=== PATIENT | female | born 1935 | race Caucasian/White ===

== ENCOUNTER 2016-12-24 20:02 | Emergency (ER) | payer MEDICARE, OTHER ==
[2016-12-24] MEDS ORDERED: cefTRIAXone 250 MG Vial IM ONE (20:41)
--- NOTE | 2016-12-24 20:46 | EDM.PDOC ---
ED HPI GENERAL MEDICAL PROBLEM - General Chief Complaint: ENT Problem Stated Complaint: PAIN/SWOLLEN LT CHEEK Time Seen by Provider: 12/24/16 20:30 Source of Information: Reports: Patient History Limitations: Reports: No Limitations - History of Present Illness INITIAL COMMENTS - FREE TEXT/NARRATIVE: HISTORY AND PHYSICAL: History of present illness: [Pt comes to the ER complaining of L cheek swelling and tenderness. Onset was this afternoon. She looked at a lemon and found herself salivating, and noticed that she had pain to her L cheek in doing so. Throughout the afternoon and evening, her left cheek became more swollen and painful. She reports a history of a L salivary stone about one year ago. She has been following with Dr. Clemente on and off for the past several months regarding this. Has not taken any OTC medications for her symptoms. Denies fever and chills, sore throat and difficulty swallowing. No chest pain, SOA or difficulty breathing. No abd pain, nausea or vomiting. Has no other complaints or concerns at this time. ] Review of systems: As per history of present illness and below otherwise all systems reviewed and negative. Past medical history: As per history of present illness and as reviewed below otherwise noncontributory. Surgical history: As per history of present illness and as reviewed below otherwise noncontributory. Social history: No reported history of drug or alcohol abuse. Family history: As per history of present illness and as reviewed below otherwise noncontributory. Physical exam: HEENT: Swelling noted to L cheek, anterior to the maxillary joint/over the parotid area. Is exquisitely tender to palpation. No erythema, or warmth to touch. Head is otherwise Atraumatic, normocephalic. Oral mucous membranes moist and pink. No swelling or abnormalities to oral cavity. No cervical lymphadenopathy. Lungs: Clear to auscultation, breath sounds equal bilaterally. Heart: S1S2, regular rate and rhythm. Abdomen: Soft, nondistended, nontender. Genitourinary: Deferred. Rectal: Deferred. Extremities: Atraumatic, ambulates without device or assistance. Neuro: Awake, alert, oriented. Motor and sensory unremarkable throughout. Exam nonfocal. Therapeutics: [Rocephin 1 gram IM] Impression: [L siloadenitis] Plan: [Cephalexin 500mg (#40) si po BID 0 RF's. Tylenol/ibuprofen prn. Follow up with Dr. Clemente tomorrow. Her demographic sheet and PN is forwarded to Dr. Clemente for her office to call and schedule appt. Strict return precautions discussed.] Definitive disposition and diagnosis as appropriate pending reevaluation and review of above. Left Oral/Mouth Pain Score (Numeric/FACES): 5 - Related Data Allergies Allergy/AdvReac Type Severity Reaction Status Date / Time amoxicillin [Amoxicillin] Allergy Rash Verified 12/24/16 20:09 Home Meds: Home Meds Metoprolol Succinate [Toprol XL] 25 mg PO BID 03/27/16 [History] Past Medical History - Past Health History Medical/Surgical History: Denies Medical/Surgical History HEENT History: Reports: Cataract, Impaired Vision Cardiovascular History: Reports: None, Arrhythmia, Other (See Below) Other Cardiovascular History: "leaky valve" Respiratory History: Reports: None Gastrointestinal History: Reports: None Genitourinary History: Reports: None ICER MACHINE History: Reports: Musculoskeletal History: Reports: Fracture Neurological History: Reports: None Psychiatric History: Reports: None Endocrine/Metabolic History: Reports: None Hematologic History: Reports: None Immunologic History: Reports: None Oncologic (Cancer) History: Reports: None Dermatologic History: Reports: None - Infectious Disease History Infectious Disease History: Reports: Chicken Pox, Shingles - Past Surgical History Head Surgeries/Procedures: Reports: None HEENT Surgical History: Reports: Cataract Surgery, Tonsillectomy, Other (See Below) Other HEENT Surgeries/Procedures: infected saliva gland GI Surgical History: Reports: Appendectomy Social & Family History - Family History Family Medical History: Noncontributory - Tobacco Use Smoking Status *Q: Never Smoker Second Hand Smoke Exposure: No - Caffeine Use Caffeine Use: Reports: Coffee - Alcohol Use Days Per Week of Alcohol Use: 0 - Recreational Drug Use Recreational Drug Use: No ED ROS ENT - Review of Systems Review Of Systems: ROS reveals no pertinent complaints other than HPI. ED EXAM, ENT - Physical Exam Exam: See Below Course - Vital Signs Last Recorded V/S: Last Vital Signs Temp 97.8 F 12/24/16 20:09 Pulse 59 L 12/24/16 20:09 Resp 18 12/24/16 20:09 BP 173/74 H 12/24/16 20:09 Pulse Ox 99 12/24/16 20:09 - Orders/Labs/Meds Meds: Medications Discontinued Medications Generic Name Dose Route Start Last Admin Trade Name Walter PRN Reason Stop Dose Admin Ceftriaxone Sodium 1,000 mg 12/24/16 20:41 Rocephin IM 12/24/16 20:42 ONETIME ONE Ceftriaxone Sodium 1,000 mg/ 4 mls @ 4 mls/sec 12/24/16 20:51 Lidocaine HCl IM 12/24/16 20:52 ONETIME ONE Departure - Departure Time of Disposition: 20:50 Disposition: Home, Self-Care 01 Condition: good Clinical Impression: Sialoadenitis, unspecified - Discharge Information Instructions: Salivary Stone Referrals: Amrit Carpio MD [Primary Care Provider] - Forms: ED Department Discharge Additional Instructions: The following information is given to patients seen in the emergency department who are being discharged to home. This information is to outline your options for follow-up care. We provide all patients seen in our emergency department with a follow-up referral. The need for follow-up, as well as the timing and circumstances, are variable depending upon the specifics of your emergency department visit. If you don't have a primary care physician on staff, we will provide you with a referral. We always advise you to contact your personal physician following an emergency department visit to inform them of the circumstance of the visit and for follow-up with them and/or the need for any referrals to a consulting specialist. The emergency department will also refer you to a specialist when appropriate. This referral assures that you have the opportunity for follow-up care with a specialist. All of these measure are taken in an effort to provide you with optimal care, which includes your follow-up. Under all circumstances we always encourage you to contact your private physician who remains a resource for coordinating your care. When calling for follow-up care, please make the office aware that this follow-up is from your recent emergency room visit. If for any reason you are refused follow-up, please contact the [facility] emergency department at and asked to speak to the emergency department charge nurse. [facility] Specialty care- ENT [address] [place] [id number] Clemente tomorrow or as a executive receptionist schedules you. Tylenol or ibuprofen as needed for discomfort. Apply warm wet washcloth to the affected area. Take antibiotics as prescribed. Return to ER as needed discussed.
[2016-12-24] MEDS ORDERED: cefTRIAXone 1,000 MG in Lidocaine 1% 4 ML IM ONE (20:51)
[2016-12-24 21:21] VITALS: BP 174/72
== END 2016-12-24 21:15 | disposition home or self-care (01) ==
LOC: MW.ED 20:02
DX: K11.20 Sialoadenitis, unspecified (principal); Z98.49 Cataract extraction status, unspecified eye; Z98.890 Other specified postprocedural states; Z90.49 Acquired absence of other specified parts of digestive tract; Z88.1 Allergy status to other antibiotic agents
CPT/HCPCS: 96372; 99283; J0696

== ENCOUNTER 2018-10-02 06:14 | Emergency (ER) | payer MEDICARE, OTHER ==
[2018-10-02] MEDS ORDERED: Albuterol/Ipratropium 3.0-0.5 MG/3 ML Neb Soln ONE (06:17)
--- NOTE | 2018-10-02 06:48 | EDM.PDOC ---
<Eduardo Puentes J - Last Filed: 10/02/18 06:46> ED HPI GENERAL MEDICAL PROBLEM - General Chief Complaint: General Stated Complaint: HIGH BLOOD PRESSURE AND PAIN IN RIGHT ARM Time Seen by Provider: 10/02/18 06:42 - History of Present Illness INITIAL COMMENTS - FREE TEXT/NARRATIVE: HISTORY AND PHYSICAL: History of present illness: Patient is an 82-year-old white female was a prior history of right shoulder/ arm injury she had physical therapy for this and does have chronic intermittent pain she states has never been at rest and she presents today with a concern of right shoulder and arm pain that awoke her from sleep. She denies chest pain denies shortness of breath denies palpitations or any other associated symptom was no diaphoresis nausea or vomiting Review of systems: As per history of present illness and below otherwise all systems reviewed and negative. Past medical history: As per history of present illness and as reviewed below otherwise noncontributory. Surgical history: As per history of present illness and as reviewed below otherwise noncontributory. Social history: No reported history of drug or alcohol abuse. Family history: As per history of present illness and as reviewed below otherwise noncontributory. Physical exam: HEENT: Atraumatic, normocephalic, pupils reactive, negative for conjunctival pallor or scleral icterus, mucous membranes moist, throat clear, neck supple, nontender, trachea midline. Lungs: Clear to auscultation, breath sounds equal bilaterally, chest nontender. Heart: S1S2, regular, negative for clicks, rubs, or JVD. Abdomen: Soft, nondistended, nontender. Negative for masses or hepatosplenomegaly. Negative for costovertebral tenderness. Pelvis: Stable nontender. Genitourinary: Deferred. Rectal: Deferred. Extremities: Right shoulder has no point tenderness no gross deformity she has limited range of motion and very to her prior injury. Neuro: Awake, alert, oriented. Cranial nerves II through XII unremarkable. Cerebellum unremarkable. Motor and sensory unremarkable throughout. Exam nonfocal. 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 right arm Pain Score (Numeric/FACES): 4 - Related Data Allergies Allergy/AdvReac Type Severity Reaction Status Date / Time amoxicillin [Amoxicillin] Allergy Rash Verified 10/02/18 06:20 Home Meds: Home Meds Metoprolol Succinate [Toprol XL] 12.5 mg PO BID 03/27/16 [History] Furosemide [Lasix] 1 tab PO DAILY 10/02/18 [History] Past Medical History - Past Health History Medical/Surgical History: Denies Medical/Surgical History HEENT History: Reports: Cataract, Impaired Vision Cardiovascular History: Reports: None, Arrhythmia, Other (See Below) Other Cardiovascular History: "leaky valve" Respiratory History: Reports: None Gastrointestinal History: Reports: None Genitourinary History: Reports: None 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: Musculoskeletal History: Reports: Fracture Neurological History: Reports: None Psychiatric History: Reports: None Endocrine/Metabolic History: Reports: None Hematologic History: Reports: None Immunologic History: Reports: None Oncologic (Cancer) History: Reports: None Dermatologic History: Reports: None - Infectious Disease History Infectious Disease History: Reports: Chicken Pox, Shingles - Past Surgical History Head Surgeries/Procedures: Reports: None HEENT Surgical History: Reports: Cataract Surgery, Tonsillectomy, Other (See Below) Other HEENT Surgeries/Procedures: infected saliva gland GI Surgical History: Reports: Appendectomy Social & Family History - Family History Family Medical History: Noncontributory - Caffeine Use Caffeine Use: Reports: Coffee ED ROS GENERAL - Review of Systems Review Of Systems: ROS reveals no pertinent complaints other than HPI. ED EXAM, GENERAL - Physical Exam Exam: See Below (See dictation) Course - Vital Signs Last Recorded V/S: Last Vital Signs Temp 97.5 F 10/02/18 06:14 Pulse 67 10/02/18 06:14 Resp 18 10/02/18 06:14 BP 131/73 10/02/18 07:34 Pulse Ox 98 10/02/18 06:14 - Orders/Labs/Meds Orders: Active Orders 24 hr Category Date Time Status Cardiac Monitoring [RC] . DIRECTED Care 10/02/18 06:33 Active EKG Documentation Completion [RC] STAT Care 10/02/18 06:33 Active Nitroglycerin [Nitrostat] Med 10/02/18 07:18 Active 0.4 mg SL Q5M PRN Sodium Chloride 0.9% [Normal Saline] 1,000 ml Med 10/02/18 07:30 Active IV STAT Medication Orders Sodium Chloride (Normal Saline) 1,000 mls @ 125 mls/hr IV STAT RODGER Last Admin: 10/02/18 07:26 Dose: 125 mls/hr Nitroglycerin (Nitrostat) 0.4 mg SL Q5M PRN PRN Reason: Chest Pain Last Admin: 10/02/18 07:28 Dose: 0.4 mg Labs: Laboratory Tests 10/02/18 10/02/18 10/02/18 Range/Units 06:25 06:25 06:25 WBC 6.32 (4.0-11.0) K/uL RBC 4.20 L (4.30-5.90) M/uL Hgb 11.9 L (12.0-16.0) g/dL Hct 37.0 (36.0-46.0) % MCV 88.1 (80.0-98.0) fL MCH 28.3 (27.0-32.0) pg MCHC 32.2 (31.0-37.0) g/dL RDW Std Deviation 44.6 (28.0-62.0) fl RDW Coeff of Andre 14 (11.0-15.0) % Plt Count 258 (150-400) K/uL MPV 9.20 (7.40-12.00) fL Neut % (Auto) 51.1 (48.0-80.0) % Lymph % (Auto) 28.0 (16.0-40.0) % [place] % (Auto) 10.1 (0.0-15.0) % Eos % (Auto) 9.7 H (0.0-7.0) % Baso % (Auto) 1.1 (0.0-1.5) % Neut # (Auto) 3.2 (1.4-5.7) K/uL Lymph # (Auto) 1.8 (0.6-2.4) K/uL [place] # (Auto) 0.6 (0.0-0.8) K/uL Eos # (Auto) 0.6 (0.0-0.7) K/uL Baso # (Auto) 0.1 (0.0-0.1) K/uL Nucleated RBC % 0.0 /100WBC Nucleated RBCs # 0 K/uL APTT 28.2 (18.6-31.3) SEC Sodium 134 L (136-145) mmol/L Potassium 3.5 (3.5-5.1) mmol/L Chloride 101 (98-107) mmol/L Carbon Dioxide 25.9 (21.0-32.0) mmol/L BUN 17 (7.0-18.0) mg/dL Creatinine 0.9 (0.6-1.0) mg/dL Est Cr Clr Drug Dosing TNP Estimated GFR (MDRD) 59.7 ml/min Glucose 116 H (74-106) mg/dL Calcium 10.2 H (8.5-10.1) mg/dL Troponin I < 0.050 (0.000-0.056) ng/mL B-Natriuretic Peptide (<100) PG/ML 10/02/18 Range/Units 06:25 WBC (4.0-11.0) K/uL RBC (4.30-5.90) M/uL Hgb (12.0-16.0) g/dL Hct (36.0-46.0) % MCV (80.0-98.0) fL MCH (27.0-32.0) pg MCHC (31.0-37.0) g/dL RDW Std Deviation (28.0-62.0) fl RDW Coeff of Andre (11.0-15.0) % Plt Count (150-400) K/uL MPV (7.40-12.00) fL Neut % (Auto) (48.0-80.0) % Lymph % (Auto) (16.0-40.0) % [place] % (Auto) (0.0-15.0) % Eos % (Auto) (0.0-7.0) % Baso % (Auto) (0.0-1.5) % Neut # (Auto) (1.4-5.7) K/uL Lymph # (Auto) (0.6-2.4) K/uL [place] # (Auto) (0.0-0.8) K/uL Eos # (Auto) (0.0-0.7) K/uL Baso # (Auto) (0.0-0.1) K/uL Nucleated RBC % /100WBC Nucleated RBCs # K/uL APTT (18.6-31.3) SEC Sodium (136-145) mmol/L Potassium (3.5-5.1) mmol/L Chloride (98-107) mmol/L Carbon Dioxide (21.0-32.0) mmol/L BUN (7.0-18.0) mg/dL Creatinine (0.6-1.0) mg/dL Est Cr Clr Drug Dosing Estimated GFR (MDRD) ml/min Glucose (74-106) mg/dL Calcium (8.5-10.1) mg/dL Troponin I (0.000-0.056) ng/mL B-Natriuretic Peptide 128 H (<100) PG/ML Meds: Medications Generic Name Dose Route Start Last Admin Trade Name Freq PRN Reason Stop Dose Admin Sodium Chloride 1,000 mls @ 125 mls/hr 10/02/18 07:30 10/02/18 07:26 Normal Saline IV 125 mls/hr STAT RODGER Administration Nitroglycerin 0.4 mg 10/02/18 07:18 10/02/18 07:28 Nitrostat SL 0.4 mg Q5M PRN Administration Chest Pain Discontinued Medications Generic Name Dose Route Start Last Admin Trade Name Freq PRN Reason Stop Dose Admin Albuterol/Ipratropium Confirm 10/02/18 06:17 10/02/18 06:41 Duoneb 3.0-0.5 Mg/3 Ml Administered 10/02/18 06:18 Not Given Dose 3 ml .ROUTE .STK-MED ONE Ketorolac Tromethamine 15 mg 10/02/18 07:44 10/02/18 08:08 Toradol IVPUSH 10/02/18 07:45 15 mg ONETIME ONE Administration Tramadol HCl 50 mg 10/02/18 08:17 10/02/18 08:27 Ultram PO 10/02/18 08:18 50 mg ONETIME ONE Administration Departure - Departure Disposition: Home, Self-Care 01 Clinical Impression: Muscle spasm - Discharge Information Referrals: PCP,None [Primary Care Provider] - Forms: ED Department Discharge Additional Instructions: The following information is given to patients seen in the emergency department who are being discharged to home. This information is to outline your options for follow-up care. We provide all patients seen in our emergency department with a follow-up referral. The need for follow-up, as well as the timing and circumstances, are variable depending upon the specifics of your emergency department visit. If you don't have a primary care physician on staff, we will provide you with a referral. We always advise you to contact your personal physician following an emergency department visit to inform them of the circumstance of the visit and for follow-up with them and/or the need for any referrals to a consulting specialist. The emergency department will also refer you to a specialist when appropriate. This referral assures that you have the opportunity for follow-up care with a specialist. All of these measure are taken in an effort to provide you with optimal care, which includes your follow-up. Under all circumstances we always encourage you to contact your private physician who remains a resource for coordinating your care. When calling for follow-up care, please make the office aware that this follow-up is from your recent emergency room visit. If for any reason you are refused follow-up, please contact the [facility] emergency department at and asked to speak to the emergency department charge nurse. - My Orders Last 24 Hours: My Active Orders 10/02/18 07:18 Nitroglycerin [Nitrostat] 0.4 mg SL Q5M PRN 10/02/18 07:30 Sodium Chloride 0.9% [Normal Saline] 1,000 ml IV STAT - Assessment/Plan Last 24 Hours: My Active Orders 10/02/18 07:18 Nitroglycerin [Nitrostat] 0.4 mg SL Q5M PRN 10/02/18 07:30 Sodium Chloride 0.9% [Normal Saline] 1,000 ml IV STAT <Ke Davalos - Last Filed: 10/02/18 08:36> ED HPI GENERAL MEDICAL PROBLEM - History of Present Illness INITIAL COMMENTS - FREE TEXT/NARRATIVE: I've seen and examined the patient I can reproduce symptoms with palpation over right bicep tricep and trapezius distribution system with muscle spasm No fever nausea vomiting chills sweats no chest pain shortness breath headache dizziness palpitation no bowel or urine symptoms HEENT grossly within normal limits Chest clear throughout nontender CV regular rate and rhythm Abdomen benign ExtremiRange of motion strength 5 out of 5 no edema Right upper extremity mild symptoms with turning head to the right, I can appreciate muscle spasm which is consistent with her pain/reproduce pain with palpation of right trapezius and right bicep distribution right 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
[2018-10-02 07:00] LABS: CHLORIDE,CL 101 mmol/L (98-107); SODIUM,NA 134 mmol/L (136-145)
--- NOTE | 2018-10-02 07:14 | CR ---
INDICATION: chest pain/shortness of breath. 1 image. prior none. INDICATION: Chest pain. TECHNIQUE: Chest 1 view. COMPARISON: None FINDINGS: Cardiovascular and mediastinum: Cardiomegaly. Mediastinum is otherwise within normal limits. Pulmonary vasculature is distinct. Lungs and pleural space: Lungs are clear. No sign of infiltrate or mass. No sign of pleural effusion. No pneumothorax. Bones and soft tissues: No significant findings. IMPRESSION: 1. Cardiomegaly. 2. No acute airspace disease. Dictated by Bonifacio Galarza MD @ 10/02/2018 7:13:00 AM Dictated by: Bonifacio Galarza MD @ 10/02/2018 07:13:07 (Electronically Signed)
[2018-10-02] MEDS ORDERED: Nitroglycerin 0.4 MG Tab.SL SL PRN (07:18)
[2018-10-02] MEDS ORDERED: Sodium Chloride 0.9% 1,000 ML IV SCH (07:30)
[2018-10-02] MEDS ORDERED: Ketorolac 30 MG/ML SDV IVPUSH ONE (07:44)
[2018-10-02] MEDS ORDERED: traMADol 50 MG Tab PO ONE (08:17)
[2018-10-02 12:38] VITALS: BP 133/75
== END 2018-10-02 09:30 | disposition home or self-care (01) ==
LOC: MW.ED 06:14
DX: M62.838 Other muscle spasm (principal); M25.511 Pain in right shoulder; G89.29 Other chronic pain; Z88.1 Allergy status to other antibiotic agents
CPT/HCPCS: 36415; 71045; 80048; 83880; 84484; 85025; 85730; 93005; 96361; 96374; 99284; A9270; J1885; J7040

== ENCOUNTER 2021-05-11 03:00 | Emergency (ER) | payer MEDICARE, OTHER ==
[2021-05-11] MEDS ORDERED: Ketorolac 15 MG/ML SDV IVPUSH ONE (05:17)
--- NOTE | 2021-05-11 06:04 | EDM.PDOC ---
<Eduardo Nina - Last Filed: 05/11/21 06:53> ED HPI GENERAL MEDICAL PROBLEM - General Chief Complaint: General Stated Complaint: SHORTNESS OF BREATH, BACK PAIN Time Seen by Provider: 05/11/21 05:08 - History of Present Illness INITIAL COMMENTS - FREE TEXT/NARRATIVE: CHIEF COMPLAINT(S): Left flank pain HISTORY OF PRESENT ILLNESS: This is a 85-year-old woman with a past medical history of hypertension who comes to the emergency department with a chief complaint of left flank pain. The patient states that at approximately 8 hours prior to arrival she was working on our project when she suddenly started to feel a sharp pain in her left flank. She states that it was quite severe. She states that she initially thought that it was just secondary to gas so she took 4 Tums however it did not seem to improve. She then thought it might be due to constipation so she took soda and water but that did not seem to help. She states that the pain gets so bad that she feels short of breath and it comes and goes. She currently rates her pain as 4 out of 10. She denies any nausea or vomiting, dysuria, hematuria, vaginal bleeding or vaginal discharge. She states that after taking the soda and water she had diarrhea. She denies any radiation of this pain and denies any exacerbating or relieving factors. She states that she is also concerned that it may be Covid even though she got both of her vaccines. REVIEW OF SYSTEMS: Constitutional: Denies fever, chills. Eyes: Denies eye pain Ears, Nose, Mouth, & Throat: Denies earache Cardiovascular: Denies chest pain Respiratory: Denies shortness of breath Gastrointestinal: Positive for diarrhea. Denies nausea, vomiting, hematochezia, hematemesis, bilious emesis, melena Genitourinary: Positive for left flank pain. Denies hematuria, dysuria Skin:Denies a rash MSK: Denies joint pain Neurological: Denies blurred vision Psychiatric: Denies depression PAST MEDICAL HISTORY: As per history of present illness and as reviewed below otherwise noncontributory. SURGICAL HISTORY: As per history of present illness and as reviewed below otherwise noncontributory. SOCIAL HISTORY: As per history of present illness and as reviewed below othe rwise noncontributory. FAMILY HISTORY: As per history of present illness and as reviewed below otherwise noncontributory. EXAMINATION OF ORGAN SYSTEMS/BODY AREAS: Constitutional: Blood pressure is 151/64, heart rate 71, respiratory rate 18 with an oxygen saturation 98% on room air. Temperature 36.3 General: Well-appearing elderly woman who is in no acute distress Psychiatric: Appropriate mood and affect. Eyes: No scleral icterus or conjunctival erythema ENMT: Moist mucous membranes. No pharyngeal erythema Cardiovascular: Regular, rate, and rhythm. No gallops, murmurs, or rubs. Bilateral upper extremity pulses symmetric and intact. No peripheral edema. No JVD. Respiratory: Lungs clear to auscultation bilaterally. No wheezes, rales, or rhonchi. Gastrointestinal: Soft, non-tender, non-distended. Normoactive bowel sounds no rebound or guarding. Genitourinary: No suprapubic tenderness left CVA tenderness. Musculoskeletal: Normal range of motion. Skin: No lesions or abrasions. Neurological: Alert, GCS 15 MEDICAL DECISION MAKING AND COURSE IN THE ED WITH INTERPRETATION/REVIEW OF DIAGNOSTIC STUDIES: This is a 85-year-old woman with a past ministry of hypertension and prior nephrolithiasis who comes to the emergency department with left flank pain that is sharp and intermittent who is mildly hypertensive but overall appears well. At this time I did discuss obtaining CBC, CMP, Covid and urinalysis. She was amenable to this plan. Also obtain a CT abdomen pelvis without contrast for further evaluation. We will provide the patient with Toradol for pain relief. Laboratory: CBC is unremarkable. BMP is unremarkable. At the time of signout the patient was pending CT abdomen pelvis without contrast final read and urinalysis. Patient was signed out to oncoming day team physician DISPOSITION: Patient was signed out to oncoming day team physician pending further work-up and final disposition CONDITION: Fair PROCEDURES: None FINAL IMPRESSION(S)/DIAGNOSES: 1. Acute left flank pain Eduardo Nina M.D. Left Middle Back Pain Score (Numeric/FACES): 7 - Related Data Allergies Allergy/AdvReac Type Severity Reaction Status Date / Time amoxicillin [Amoxicillin] Allergy Rash Verified 10/02/18 06:20 Home Meds: Home Meds Metoprolol Succinate [Toprol XL] 12.5 mg PO BID 03/27/16 [History] Furosemide [Lasix] 1 tab PO DAILY 10/02/18 [History] Cyclobenzaprine [Flexeril] 10 mg PO TID PRN #20 tab 05/11/21 [Rx] cephALEXin [Keflex] 500 mg PO Q8H 7 Days #21 cap 05/11/21 [Rx] Past Medical History - Past Health History Medical/Surgical History: Denies Medical/Surgical History HEENT History: Reports: Cataract, Impaired Vision Cardiovascular History: Reports: None, Arrhythmia, Other (See Below) Other Cardiovascular History: "leaky valve" Respiratory History: Reports: None Gastrointestinal History: Reports: None Genitourinary History: Reports: None VISITING PROFESSOR History: Reports: Musculoskeletal History: Reports: Fracture Neurological History: Reports: None Psychiatric History: Reports: None Endocrine/Metabolic History: Reports: None Hematologic History: Reports: None Immunologic History: Reports: None Oncologic (Cancer) History: Reports: None Dermatologic History: Reports: None - Infectious Disease History Infectious Disease History: Reports: Chicken Pox, Shingles - Past Surgical History Head Surgeries/Procedures: Reports: None HEENT Surgical History: Reports: Cataract Surgery, Tonsillectomy, Other (See Below) Other HEENT Surgeries/Procedures: infected saliva gland Cardiovascular Surgical History: Reports: None GI Surgical History: Reports: Appendectomy Musculoskeletal Surgical History: Reports: Other (See Below) Other Musculoskeletal Surgeries/Procedures:: lt knee surgery, elbow surgery (fracture) Social & Family History - Family History Family Medical History: No Pertinent Family History - Tobacco Use Tobacco Use Status *Q: Never Tobacco User Second Hand Smoke Exposure: No - Caffeine Use Caffeine Use: Reports: Coffee - Recreational Drug Use Recreational Drug Use: No ED ROS GENERAL - Review of Systems Review Of Systems: See Below ED EXAM, GENERAL - Physical Exam Exam: See Below Departure - Departure Disposition: Home, Self-Care 01 Clinical Impression: UTI (urinary tract infection) Qualifiers: Urinary tract infection type: site unspecified Hematuria presence: without hematuria Qualified Code(s): N39.0 - Urinary tract infection, site not specified - Discharge Information Instructions: Urinary Tract Infection, Adult Referrals: Mike Santacruz MD [Primary Care Provider] - Forms: ED Department Discharge Additional Instructions: The following information is given to patients seen in the emergency department who are being discharged to home. This information is to outline your options for follow-up care. We provide all patients seen in our emergency department with a follow-up referral. The need for follow-up, as well as the timing and circumstances, are variable depending upon the specifics of your emergency department visit. If you don't have a primary care physician on staff, we will provide you with a referral. We always advise you to contact your personal physician following an emergency department visit to inform them of the circumstance of the visit and for follow-up with them and/or the need for any referrals to a consulting specialist. The emergency department will also refer you to a specialist when appropriate. This referral assures that you have the opportunity for follow-up care with a specialist. All of these measure are taken in an effort to provide you with optimal care, which includes your follow-up. Under all circumstances we always encourage you to contact your private physician who remains a resource for coordinating your care. When calling for follow-up care, please make the office aware that this follow-up is from your recent emergency room visit. If for any reason you are refused follow-up, please contact the [facility] Emergency Department at and asked to speak to the emergency department charge nurse. Please follow up with your primary care physician. If you do not have a primary care physician, see below: [facility] [address] [place] [id number] [facility] [address] [place] [id number] [facility] [address] [place] [id number] <Toan Briseno - Last Filed: 05/11/21 08:57> Course - Vital Signs Last Recorded V/S: Last Vital Signs Temp 97.3 F 05/11/21 05:04 Pulse 62 05/11/21 08:16 Resp 18 05/11/21 08:16 BP 130/62 05/11/21 08:16 Pulse Ox 99 05/11/21 08:16 - Orders/Labs/Meds Orders: Active Orders 24 hr Category Date Time Status Abdomen Pelvis wo Cont [CT] Stat Exams 05/11/21 05:17 Taken cefTRIAXone [Rocephin in Dextrose,Iso-Osm 1 GM/50 ML] 1 Med 05/11/21 08:33 Active gm Premix Bag 1 bag IV ONETIME Medication Orders Ceftriaxone Sodium/Dextrose 1 (gm/ Premix) 50 mls @ 100 mls/hr IV ONETIME ONE Stop: 05/11/21 09:02 Last Admin: 05/11/21 08:52 Dose: 100 mls/hr Documented by: MARTHA Labs: Laboratory Tests 05/11/21 05/11/21 05/11/21 Range/Units 05:47 05:47 05:47 WBC 4.82 (4.0-11.0) K/uL RBC 4.30 (4.30-5.90) M/uL Hgb 12.6 (12.0-16.0) g/dL Hct 38.0 (36.0-46.0) % MCV 88.4 (80.0-98.0) fL MCH 29.3 (27.0-32.0) pg MCHC 33.2 (31.0-37.0) g/dL RDW Std Deviation 46.2 (28.0-62.0) fl RDW Coeff of Andre 14 (11.0-15.0) % Plt Count 206 (150-400) K/uL MPV 10.40 (7.40-12.00) fL Neut % (Auto) 61.1 (48.0-80.0) % Lymph % (Auto) 16.8 (16.0-40.0) % [place] % (Auto) 14.5 (0.0-15.0) % Eos % (Auto) 6.6 (0.0-7.0) % Baso % (Auto) 1.0 (0.0-1.5) % Neut # (Auto) 2.9 (1.4-5.7) K/uL Lymph # (Auto) 0.8 (0.6-2.4) K/uL [place] # (Auto) 0.7 (0.0-0.8) K/uL Eos # (Auto) 0.3 (0.0-0.7) K/uL Baso # (Auto) 0.1 (0.0-0.1) K/uL Nucleated RBC % 0.0 /100WBC Nucleated RBCs # 0 K/uL Sodium 136 (136-145) mmol/L Potassium 3.9 (3.5-5.1) mmol/L Chloride 99 (98-107) mmol/L Carbon Dioxide 31.7 (21.0-32.0) mmol/L BUN 16 (7.0-18.0) mg/dL Creatinine 0.8 (0.6-1.0) mg/dL Est Cr Clr Drug Dosing 35.59 mL/min Estimated GFR (MDRD) > 60.0 ml/min Glucose 99 (74-106) mg/dL Calcium 9.8 (8.5-10.1) mg/dL Urine Color Urine Appearance Urine pH (5.0-8.0) Ur Specific Sheridan (1.001-1.035) Urine Protein (NEGATIVE) mg/dL Urine Glucose (UA) (NEGATIVE) mg/dL Urine Ketones (NEGATIVE) mg/dL Urine Occult Blood (NEGATIVE) Urine Nitrite (NEGATIVE) Urine Bilirubin (NEGATIVE) Urine Urobilinogen (<2.0) EU/dL Ur Leukocyte Esterase (NEGATIVE) Urine RBC (0-2/HPF) Urine WBC (0-5/HPF) Ur Epithelial Cells (NONE-FEW) Urine Bacteria (NEGATIVE) SARS-CoV-2 RNA (GINI) NEGATIVE (NEGATIVE) 05/11/21 Range/Units 07:45 WBC (4.0-11.0) K/uL RBC (4.30-5.90) M/uL Hgb (12.0-16.0) g/dL Hct (36.0-46.0) % MCV (80.0-98.0) fL MCH (27.0-32.0) pg MCHC (31.0-37.0) g/dL RDW Std Deviation (28.0-62.0) fl RDW Coeff of Andre (11.0-15.0) % Plt Count (150-400) K/uL MPV (7.40-12.00) fL Neut % (Auto) (48.0-80.0) % Lymph % (Auto) (16.0-40.0) % One[place] % (Auto) (0.0-15.0) % Eos % (Auto) (0.0-7.0) % Baso % (Auto) (0.0-1.5) % Neut # (Auto) (1.4-5.7) K/uL Lymph # (Auto) (0.6-2.4) K/uL [place] # (Auto) (0.0-0.8) K/uL Eos # (Auto) (0.0-0.7) K/uL Baso # (Auto) (0.0-0.1) K/uL Nucleated RBC % /100WBC Nucleated RBCs # K/uL Sodium (136-145) mmol/L Potassium (3.5-5.1) mmol/L Chloride (98-107) mmol/L Carbon Dioxide (21.0-32.0) mmol/L BUN (7.0-18.0) mg/dL Creatinine (0.6-1.0) mg/dL Est Cr Clr Drug Dosing mL/min Estimated GFR (MDRD) ml/min Glucose (74-106) mg/dL Calcium (8.5-10.1) mg/dL Urine Color YELLOW Urine Appearance SLT CLOUDY Urine pH 8.5 H (5.0-8.0) Ur Specific [place] 1.010 (1.001-1.035) Urine Protein NEGATIVE (NEGATIVE) mg/dL Urine Glucose (UA) NEGATIVE (NEGATIVE) mg/dL Urine Ketones NEGATIVE (NEGATIVE) mg/dL Urine Occult Blood TRACE-INTACT H (NEGATIVE) Urine Nitrite POSITIVE H (NEGATIVE) Urine Bilirubin NEGATIVE (NEGATIVE) Urine Urobilinogen 0.2 (<2.0) EU/dL Ur Leukocyte Esterase SMALL H (NEGATIVE) Urine RBC 0-2 (0-2/HPF) Urine WBC 1-3 (0-5/HPF) Ur Epithelial Cells RARE (NONE-FEW) Urine Bacteria 1+ H (NEGATIVE) SARS-CoV-2 RNA (GINI) (NEGATIVE) Meds: Medications Generic Name Dose Route Start Last Admin Trade Name Freq PRN Reason Stop Dose Admin Ceftriaxone Sodium/Dextrose 1 50 mls @ 100 mls/hr 05/11/21 08:33 05/11/21 08:52 gm/ Premix IV 05/11/21 09:02 100 mls/hr ONETIME ONE Administration Discontinued Medications Generic Name Dose Route Start Last Admin Trade Name Freq PRN Reason Stop Dose Admin Ketorolac Tromethamine 15 mg 05/11/21 05:17 05/11/21 05:42 Ketorolac 15 Mg/Ml Sdv IVPUSH 10/03/21 05:18 15 mg ONETIME ONE Administration - Re-Assessments/Exams Free Text/Narrative Re-Assessment/Exam: 05/11/21 08:33 UA does show positive nitrates. Culture has been sent and is pending. Will give a dose of Rocephin. Will follow-up CT imaging results and disposition. 05/11/21 08:54 CT imaging is grossly unremarkable. Will discharge patient with antibiotics and follow-up PMD. Departure - Departure Time of Disposition: 08:55 Condition: Good Sepsis Event Note (ED) - Focused Exam Vital Signs: Vital Signs Temp Pulse Resp BP Pulse Ox 05/11/21 08:16 62 18 130/62 99 05/11/21 05:04 97.3 F 71 18 151/64 H 98 - My Orders Last 24 Hours: My Active Orders 05/11/21 08:33 cefTRIAXone [Rocephin in Dextrose,Iso-Osm 1 GM/50 ML] 1 gm Premix Bag 1 bag IV ONETIME - Assessment/Plan Last 24 Hours: My Active Orders 05/11/21 08:33 cefTRIAXone [Rocephin in Dextrose,Iso-Osm 1 GM/50 ML] 1 gm Premix Bag 1 bag IV ONETIME
[2021-05-11 06:24] LABS: BLOOD UREA NITROGEN,BUN 16 mg/dL (7.0-18.0); CARBON DIOXIDE,CO2 31.7 mmol/L (21.0-32.0); CHLORIDE,CL 99 mmol/L (98-107); GLUCOSE RANDOM 99 mg/dL (74-106); POTASSIUM,K 3.9 mmol/L (3.5-5.1); SODIUM,NA 136 mmol/L (136-145)
[2021-05-11] MEDS ORDERED: cefTRIAXone 1 GM in Premix Bag 1 BAG IV ONE (08:33)
[2021-05-11 09:27] VITALS: BP 155/64; PULSE 61
--- NOTE | 2021-05-12 10:27 | CT ---
EXAM DATE: 05/11/21 PATIENT'S AGE: 85 Patient: MARCOS CHAN Facility: [facility] . Site : [id number] Study: CT-Abdomen/Pelvis -05/11/2021 5:41:10 AM Ordering Physician: Kelle Clark Final Report: INDICATION: Left flank pain TECHNIQUE: CT abdomen and pelvis without contrast. COMPARISON: None FINDINGS: Mild atelectasis within the lung bases. No suspicious nodules within the lung bases. Liver appears unremarkable. Cholelithiasis. Pancreas and spleen are unremarkable. Atherosclerotic calcifications of the aorta in which is tortuous and ectatic. Bladder is deviated to the left. Numerous phleboliths within the pelvis. Bowel is unremarkable. Scoliotic curvature of the spine. Bones are osteopenic. IMPRESSION: Limited noncontrast exam. There is no definite stone within the ureter, however, there are numerous phleboliths within the pelvis and body habitus and noncontrast exam makes it difficult to follow the ureter. There is no left hydronephrosis. If continued clinical concern of stone or other issue, consider repeating the exam with contrast. Please note that all CT scans at this facility use dose modulation, iterative reconstruction, and/or weight-based dosing when appropriate to reduce radiation dose to as low as reasonably achievable. Dictated by MD RAKEL @ 05/11/2021 8:01:09 AM Signed by: MD RAKEL @05/11/2021 8:01:09 AM (Electronic Signature) Report Signed by Proxy. ARTURO
== END 2021-05-11 09:27 | disposition home or self-care (01) ==
LOC: MW.ED 03:00
DX: N39.0 Urinary tract infection, site not specified (principal); I10 Essential (primary) hypertension; Z88.0 Allergy status to penicillin; Z79.899 Other long term (current) drug therapy; Z20.822 Contact with and (suspected) exposure to COVID-19
CPT/HCPCS: 36415; 74176; 80048; 81001; 85025; 96365; 96375; 99284; J0696; J1885; U0002

== ENCOUNTER 2021-11-27 08:13 | Emergency (ER) | payer MEDICARE, OTHER ==
[2021-11-27 10:08] LABS: CARBON DIOXIDE,CO2 25.4 mmol/L (21.0-32.0); POTASSIUM,K 3.8 mmol/L (3.5-5.1)
[2021-11-27 10:14] VITALS: BP 128/50; PULSE 63
== END 2021-11-27 10:31 | disposition home or self-care (01) ==
LOC: MW.ED 08:13
DX: S52.021A Displaced fracture of olecranon process without intraarticular extension of right ulna, initial encounter for closed fracture (principal); Z88.0 Allergy status to penicillin; Z79.899 Other long term (current) drug therapy; Z90.49 Acquired absence of other specified parts of digestive tract; W19.XXXA Unspecified fall, initial encounter
CPT/HCPCS: 29105; 36415; 73080-26-RT; 73080-RT; 80053; 81001; 85025; 87086; 87088; 87186; 99283-25

== ENCOUNTER 2021-12-01 09:57 | Day surgery (SDC) | payer MEDICARE, OTHER ==
[~2021-12-01 09:57] MED LIST: Albuterol 0.083% 2.5 MG/3 ML Neb Soln NEB PRN; HYDROmorphone 1 MG/ML Syringe IVPUSH PRN; Lactated Ringers 1,000 ML IV SCH; Metoclopramide 10 MG/2 ML SDV IVPUSH PRN; Naloxone 0.4 MG/ML SDV IVPUSH PRN; Ondansetron 4 MG/2 ML SDV IVPUSH PRN; fentaNYL 100 MCG/2 ML SDV IVPUSH PRN
[2021-12-01] MEDS ORDERED: Propofol 200 MG/20 ML SDV ONE (10:31)
[2021-12-01] MEDS ORDERED: fentaNYL 100 MCG/2 ML SDV ONE (10:31)
[2021-12-01] MEDS ORDERED: Clindamycin Phosphate in D5W 600 MG in Premix Bag 1 BAG IV SCH ×4 (10:45→12:00)
[2021-12-01] MEDS ORDERED: Bupivacaine 0.25% 30 ML SDV ONE (10:46)
[2021-12-01] MEDS ORDERED: Bupivacaine 0.5% 30 ML SDV ONE (10:52)
[2021-12-01] MEDS ORDERED: Bupivacaine 0.25%/EPINEPHrine 1:200,000 10 ML SDV ONE (10:58)
[2021-12-01] MEDS ORDERED: Dexamethasone 4 MG/ML 5 ML MDV ONE (11:25)
[2021-12-01] MEDS ORDERED: ePHEDrine 50 MG/ML SDV ONE (12:04)
[2021-12-01] MEDS ORDERED: Ondansetron 4 MG/2 ML SDV ONE (12:32)
[2021-12-01 15:15] VITALS: BP 138/63; PULSE 90
== END 2021-12-01 16:49 | disposition home or self-care (01) ==
LOC: MW.SDS 09:57
PROVIDERS: ATTEND Orthopaedic Surgery
DX: S52.021A Displaced fracture of olecranon process without intraarticular extension of right ulna, initial encounter for closed fracture (principal); F41.9 Anxiety disorder, unspecified; E78.5 Hyperlipidemia, unspecified; G47.00 Insomnia, unspecified; Z90.49 Acquired absence of other specified parts of digestive tract; Z79.899 Other long term (current) drug therapy; Z88.2 Allergy status to sulfonamides; Z88.1 Allergy status to other antibiotic agents; Z88.8 Allergy status to other drugs, medicaments and biological substances; Z98.890 Other specified postprocedural states
CPT/HCPCS: 24685; C1713; J0131; J1100; J2405; J2704; J3010; J3490; J7120; 01740; 64415; 99100

== ENCOUNTER 2021-12-02 12:59 | Inpatient (IN) | payer MEDICARE, OTHER ==
[2021-12-02] MEDS ORDERED: Sodium Chloride 0.9% 2.5 ML Syringe FLUSH PRN (13:19)
[2021-12-02] MEDS ORDERED: Sodium Chloride 0.9% 10 ML Syringe FLUSH PRN (13:19)
[2021-12-02] MEDS ORDERED: Sodium Chloride 0.9% 1,000 ML IV ONE (13:19)
[2021-12-02] MEDS ORDERED: Acetaminophen/HYDROcodone 325-5 MG Tab PO ONE (13:41)
[2021-12-02] MEDS ORDERED: Ondansetron 4 MG/2 ML SDV IVPUSH ONE ×2 (13:47→16:10)
[2021-12-02] MEDS ORDERED: Morphine 4 MG/ML VIAL IM ONE (13:47)
[2021-12-02] MEDS ORDERED: Morphine 4 MG/ML VIAL IVPUSH ONE (13:53)
[2021-12-02 14:12] LABS: CARBON DIOXIDE,CO2 25.7 mmol/L (21.0-32.0); POTASSIUM,K 4.1 mmol/L (3.5-5.1)
[2021-12-02] MEDS ORDERED: fentaNYL 50 MCG/ML SDV IVPUSH ONE ×2 (14:50→16:11)
[2021-12-02] MEDS ORDERED: fentaNYL 100 MCG/2 ML SDV IVPUSH STA (16:10)
[2021-12-02] MEDS ORDERED: Albuterol/Ipratropium 3.0-0.5 MG/3 ML Neb Soln NEB PRN (19:28)
[2021-12-02] MEDS ORDERED: Ondansetron 4 MG/2 ML SDV IVPUSH PRN (19:28)
[2021-12-02] MEDS ORDERED: Morphine 2 MG/ML SYRINGE IVPUSH PRN (19:28)
[2021-12-02] MEDS ORDERED: Pantoprazole 40 MG in Sodium Chloride 0.9% 10 ML IVPUSH SCH (19:45)
[2021-12-02] MEDS: Morphine 2 MG/ML SYRINGE IVPUSH PRN (23:46)
[2021-12-02] MEDS: Acetaminophen/oxyCODONE 325-5 MG Tab PO SCH (23:57)
[2021-12-03] MEDS: Morphine 2 MG/ML SYRINGE IVPUSH PRN ×4 (03:56→20:13)
[2021-12-03] MEDS: Acetaminophen/oxyCODONE 325-5 MG Tab PO SCH ×3 (05:51→18:16)
[2021-12-03 06:54] LABS: BLOOD UREA NITROGEN,BUN 14 mg/dL (7.0-18.0); CARBON DIOXIDE,CO2 23.2 mmol/L (21.0-32.0); CHLORIDE,CL 100 mmol/L (98-107); GLUCOSE RANDOM 87 mg/dL (74-106); POTASSIUM,K 4.2 mmol/L (3.5-5.1); SODIUM,NA 129 mmol/L (136-145)
[2021-12-03] MEDS: Aspirin 81 MG Tab.EC PO SCH ×2 (09:38→09:58)
[2021-12-03] MEDS: Pantoprazole 40 MG Tab.CR PO SCH (09:38)
[2021-12-03] MEDS: Metoprolol Succinate 25 MG Tab.ER PO SCH (09:53)
[2021-12-03] MEDS: cefTRIAXone 1 GM in Sodium Chloride 0.9% 50 ML IV SCH (10:04)
[2021-12-04] MEDS: Acetaminophen/oxyCODONE 325-5 MG Tab PO SCH ×5 (00:33→22:55)
[2021-12-04] MEDS: Morphine 2 MG/ML SYRINGE IVPUSH PRN ×3 (02:33→13:25)
[2021-12-04 07:43] LABS: BLOOD UREA NITROGEN,BUN 20 mg/dL (7.0-18.0); CARBON DIOXIDE,CO2 23.4 mmol/L (21.0-32.0); CHLORIDE,CL 98 mmol/L (98-107); GLUCOSE RANDOM 93 mg/dL (74-106); POTASSIUM,K 4.5 mmol/L (3.5-5.1); SODIUM,NA 128 mmol/L (136-145)
[2021-12-04] MEDS: cefTRIAXone 1 GM in Sodium Chloride 0.9% 50 ML IV SCH (09:11)
[2021-12-04] MEDS: Pantoprazole 40 MG Tab.CR PO SCH (09:11)
[2021-12-04] MEDS: Metoprolol Succinate 25 MG Tab.ER PO SCH (09:11)
[2021-12-04] MEDS: Aspirin 81 MG Tab.EC PO SCH (09:16)
[2021-12-04] MEDS: Heparin Sodium 5,000 Units/ML Vial SUBCUT SCH (17:47)
[2021-12-05] MEDS: Heparin Sodium 5,000 Units/ML Vial SUBCUT SCH ×2 (05:25→17:58)
[2021-12-05] MEDS: Acetaminophen/oxyCODONE 325-5 MG Tab PO SCH ×4 (05:25→23:43)
[2021-12-05 06:36] LABS: BLOOD UREA NITROGEN,BUN 19 mg/dL (7.0-18.0); CARBON DIOXIDE,CO2 26.2 mmol/L (21.0-32.0); CHLORIDE,CL 101 mmol/L (98-107); GLUCOSE RANDOM 99 mg/dL (74-106); POTASSIUM,K 4.6 mmol/L (3.5-5.1); SODIUM,NA 132 mmol/L (136-145)
[2021-12-05] MEDS ORDERED: Bisacodyl 10 MG Supp RECTAL PRN (09:08)
[2021-12-05] MEDS: Metoprolol Succinate 25 MG Tab.ER PO SCH (09:09)
[2021-12-05] MEDS: Aspirin 81 MG Tab.EC PO SCH (09:11)
[2021-12-05] MEDS: Pantoprazole 40 MG Tab.CR PO SCH (09:12)
[2021-12-05] MEDS: cefTRIAXone 1 GM in Sodium Chloride 0.9% 50 ML IV SCH (09:20)
[2021-12-05] MEDS: Polyethylene Glycol 3350 Powder 17 GM Packet PO SCH (09:28)
[2021-12-05] MEDS: Docusate Sodium 100 MG Cap PO SCH ×2 (09:28→21:26)
[2021-12-06] MEDS: Heparin Sodium 5,000 Units/ML Vial SUBCUT SCH (06:03)
[2021-12-06] MEDS: Acetaminophen/oxyCODONE 325-5 MG Tab PO SCH ×2 (06:03→12:12)
[2021-12-06 08:07] LABS: BLOOD UREA NITROGEN,BUN 20 mg/dL (7.0-18.0); CARBON DIOXIDE,CO2 25.9 mmol/L (21.0-32.0); CHLORIDE,CL 102 mmol/L (98-107); GLUCOSE RANDOM 97 mg/dL (74-106); POTASSIUM,K 4.6 mmol/L (3.5-5.1); SODIUM,NA 133 mmol/L (136-145)
[2021-12-06] MEDS: Pantoprazole 40 MG Tab.CR PO SCH (08:59)
[2021-12-06] MEDS: Docusate Sodium 100 MG Cap PO SCH (09:00)
[2021-12-06] MEDS: Polyethylene Glycol 3350 Powder 17 GM Packet PO SCH (09:01)
[2021-12-06] MEDS: Metoprolol Succinate 25 MG Tab.ER PO SCH (09:01)
[2021-12-06] MEDS: Aspirin 81 MG Tab.EC PO SCH (09:01)
[2021-12-06] MEDS: cefTRIAXone 1 GM in Sodium Chloride 0.9% 50 ML IV SCH (11:10)
[2021-12-06 12:11] VITALS: BP 141/62; PULSE 92
== END 2021-12-06 16:15 | disposition home health service (06) | DRG 948 ==
LOC: MW.ED 12:59 → MW.MS 16:47 → OBSVTOIN 12-03 16:04 → MW.MS 12-03 16:05
PROVIDERS: ADMIT Student in an Organized Health Care Education/Training Program; ATTEND Student in an Organized Health Care Education/Training Program
DX: G89.18 Other acute postprocedural pain (principal); S32.592A Other specified fracture of left pubis, initial encounter for closed fracture; S52.031D Displaced fracture of olecranon process with intraarticular extension of right ulna, subsequent encounter for closed fracture with routine healing; W19.XXXD Unspecified fall, subsequent encounter; Z98.890 Other specified postprocedural states; R55 Syncope and collapse; E86.0 Dehydration; E87.1 Hypo-osmolality and hyponatremia; Z66 Do not resuscitate; B96.20 Unspecified Escherichia coli [E. coli] as the cause of diseases classified elsewhere; Z88.1 Allergy status to other antibiotic agents; Z79.82 Long term (current) use of aspirin; H91.90 Unspecified hearing loss, unspecified ear; Z98.49 Cataract extraction status, unspecified eye; Z79.899 Other long term (current) drug therapy; H54.7 Unspecified visual loss; H91.93 Unspecified hearing loss, bilateral; Z90.49 Acquired absence of other specified parts of digestive tract; Z86.79 Personal history of other diseases of the circulatory system; W19.XXXA Unspecified fall, initial encounter; M19.90 Unspecified osteoarthritis, unspecified site; I10 Essential (primary) hypertension; N39.0 Urinary tract infection, site not specified; Z20.822 Contact with and (suspected) exposure to COVID-19
CPT/HCPCS: 36415 ×2; 73070; 73502; 80048; 80053; 81001; 83735; 84100; 84484; 85025 ×2; 93005; A9270 ×5; C9113; J0696; J2270 ×6; J2405 ×3; J3010 ×2; J3490 ×2; J7030; U0002; 72192; 72192-26; 96374; 96375; 96376; 97110-GP; 97116-GP; 97163-GP; 97530-GP; 99285-25; J1644

== ENCOUNTER 2023-03-04 23:13 | Emergency (ER) | payer MEDICARE, OTHER ==
[2023-03-04] MEDS ORDERED: Acetaminophen 325 MG Tab PO ONE (23:40)
[2023-03-05 01:22] VITALS: BP 160/70; PULSE 71
== END 2023-03-05 00:55 | disposition home or self-care (01) ==
LOC: MW.ED 23:13
DX: S90.02XA Contusion of left ankle, initial encounter (principal); I10 Essential (primary) hypertension; Z88.0 Allergy status to penicillin; Z79.899 Other long term (current) drug therapy; X50.1XXA Overexertion from prolonged static or awkward postures, initial encounter
CPT/HCPCS: 73610; 99283; A9270

== ENCOUNTER 2023-03-14 20:55 | Emergency (ER) | payer MEDICARE, OTHER ==
[2023-03-14] MEDS ORDERED: Sodium Chloride 0.9% 2.5 ML Syringe FLUSH PRN (21:03)
[2023-03-14] MEDS ORDERED: Sodium Chloride 0.9% 20 ML SDV IV PRN (21:03)
[2023-03-14] MEDS ORDERED: Sodium Chloride 0.9% 10 ML Syringe FLUSH PRN (21:03)
[2023-03-14 21:18] LABS: BASOPHILS ABSOLUTE AUTO 0.1 K/uL (0.0-0.1); BASOPHILS PERCENT AUTO 0.9 % (0.0-1.5); EOSINOPHILS ABSOLUTE AUTO 0.5 K/uL (0.0-0.7); HEMATOCRIT 36.2 % (36.0-46.0); LYMPHOCYTES ABSOLUTE AUTO 1.1 K/uL (0.6-2.4); LYMPHOCYTES PERCENT AUTO 19.4 % (16.0-40.0); MEAN CORPUSCULAR HEMOGLOBIN 29.1 pg (27.0-32.0); MEAN CORPUSCULAR HGB CONC 33.1 g/dL (31.0-37.0); MEAN CORPUSCULAR VOLUME 87.9 fL (80.0-98.0); MONOCYTES ABSOLUTE AUTO 0.6 K/uL (0.0-0.8); NEUTROPHILS ABSOLUTE AUTO 3.5 K/uL (1.4-5.7); NEUTROPHILS PERCENT AUTO 60.7 % (48.0-80.0); NRBC ABSOLUTE 0 K/uL; PLATELET COUNT,PLT 312 K/uL (150-400); RED BLOOD CELL COUNT 4.12 M/uL (4.30-5.90); WHITE BLOOD CELL COUNT,WBC 5.73 K/uL (4.0-11.0)
[2023-03-14 21:38] LABS: INR 1.04 (0.86-1.11); PTT,PARTIAL THROMBOPLSTIN TIME 23.9 SEC (23.9-30.7)
[2023-03-14 21:40] LABS: A/G RATIO 0.8 (0.9-1.6); ALBUMIN 3.1 g/dL (3.4-5.0); BILIRUBIN TOTAL 0.3 mg/dL (0.2-1.0); CALCIUM 9.9 mg/dL (8.5-10.1); EST CRCL DRUG DOSING (CG) 27.39 mL/min; PROTEIN TOTAL,TP 7.1 g/dL (6.4-8.2)
[2023-03-14] MEDS ORDERED: Iopamidol 755 MG/ML 500 ML Multipack Bottle IVPUSH ONE (22:01)
[2023-03-15 00:01] VITALS: PULSE 82
[2023-03-15 00:09] LABS: APPEARANCE,URINE SLT CLOUDY; BILIRUBIN,URINE NEGATIVE (NEGATIVE); COLOR,URINE YELLOW; GLUCOSE,URINE NEGATIVE (NEGATIVE); KETONES,URINE NEGATIVE (NEGATIVE); LEUKOCYTE ESTERASE,URINE NEGATIVE (NEGATIVE); NITRITE,URINE NEGATIVE (NEGATIVE); OCCULT BLOOD,URINE TRACE-INTACT (NEGATIVE); PH,URINE 7.5 (5.0-8.0); PROTEIN,URINE NEGATIVE (NEGATIVE); UROBILINOGEN,URINE 0.2 EU/dL (<2.0)
[2023-03-15 00:17] LABS: AMORPHOUS SEDIMENT,URINE MODERATE (NEGATIVE); BACTERIA,URINE FEW (NEGATIVE); EPITHELIAL CELLS,URINE OCCASIONAL (NONE-FEW); RBC,URINE 0-2 (0-2/HPF); WBC,URINE 0-4 (0-5/HPF)
[2023-03-15 00:42] VITALS: BP 142/73
== END 2023-03-15 00:40 ==
LOC: MW.ED 20:55
DX: I62.01 Nontraumatic acute subdural hemorrhage (principal); R47.9 Unspecified speech disturbances; I10 Essential (primary) hypertension; Z79.82 Long term (current) use of aspirin; Z88.0 Allergy status to penicillin
CPT/HCPCS: 36415; 70450; 70496; 70498; 80053; 81001; 82947; 85025; 85610; 85730; 93005; 99285; J3490; Q9967; 93010

== ENCOUNTER 2023-05-26 08:04 | Day surgery (SDC) | payer MEDICARE, OTHER ==
[~2023-05-26 08:04] MED LIST changes: -Albuterol 0.083% 2.5 MG/3 ML Neb Soln NEB PRN; -HYDROmorphone 1 MG/ML Syringe IVPUSH PRN; -Metoclopramide 10 MG/2 ML SDV IVPUSH PRN; -Naloxone 0.4 MG/ML SDV IVPUSH PRN; -Ondansetron 4 MG/2 ML SDV IVPUSH PRN; -fentaNYL 100 MCG/2 ML SDV IVPUSH PRN
[2023-05-26] MEDS ORDERED: Lidocaine 2% 5 ML SDV ONE (10:07)
[2023-05-26] MEDS ORDERED: Propofol 200 MG/20 ML SDV ONE (10:08)
[2023-05-26 13:08] VITALS: BP 153/67; PULSE 66
== END 2023-05-26 12:09 | disposition home or self-care (01) ==
LOC: MW.SDS 08:04
PROVIDERS: ATTEND Surgery
DX: D12.6 Benign neoplasm of colon, unspecified (principal); Q43.8 Other specified congenital malformations of intestine; K64.8 Other hemorrhoids; K62.89 Other specified diseases of anus and rectum; F41.9 Anxiety disorder, unspecified; E78.5 Hyperlipidemia, unspecified; I10 Essential (primary) hypertension; K59.09 Other constipation; G47.00 Insomnia, unspecified; Z88.0 Allergy status to penicillin; Z88.8 Allergy status to other drugs, medicaments and biological substances; Z88.2 Allergy status to sulfonamides; Z79.899 Other long term (current) drug therapy; Z98.890 Other specified postprocedural states
CPT/HCPCS: 45380; J2704; J7120; J3490

== ENCOUNTER 2023-09-29 13:25 | Emergency (ER) | payer MEDICARE, OTHER ==
[2023-09-29 15:28] VITALS: BP 167/82; PULSE 67
== END 2023-09-29 15:29 | disposition home or self-care (01) ==
LOC: MW.ED 13:25
DX: S09.90XA Unspecified injury of head, initial encounter (principal); I10 Essential (primary) hypertension; Z88.0 Allergy status to penicillin; Z88.2 Allergy status to sulfonamides; Z88.8 Allergy status to other drugs, medicaments and biological substances; Z79.899 Other long term (current) drug therapy; W18.31XA Fall on same level due to stepping on an object, initial encounter
CPT/HCPCS: 70450; 70450-26; 93005; 93010; 99282; 99284